=== PATIENT | female | born 1940 | race American Indian/Alaskan Native ===

== ENCOUNTER 2019-05-07 12:47 | Outpatient (CLI) | payer MEDICARE ==
--- NOTE | 2019-05-07 14:02 | XRay Report ---
CHEST 2 VIEWS INDICATION: COUGH. COMPARISON: None. FINDINGS: Support devices: None. Heart: Within normal limits. Pulmonary vasculature: Normal. Lungs/pleura: No acute air space or interstitial disease. No pneumothorax. Additional findings: None. IMPRESSION: 1. No acute findings. Signer Name: Diaz Paniagua MD Signed: 05/07/2019 1:58 PM Workstation Name: [id number]
== END 2019-05-07 12:48 | disposition home or self-care (01) ==
LOC: SPVIMAG 12:47
PROVIDERS: ATTEND Internal Medicine
DX: R05 Cough (principal)
CPT/HCPCS: 71046